=== PATIENT | female | born 1970 | race Caucasian/White ===

== ENCOUNTER → 2017-07-19 02:41 | Outpatient (CLI) | payer MEDICAID ==
[2010-10-28 12:47] VITALS: BMI 26.5
[2017-07-19 06:46] LABS: HELICOBACTER PYLORI IGG NEGATIVE (NEGATIVE)
== END ==
LOC: D.LABREF 02:41
PROVIDERS: Family Medicine
DX: R11.2 Nausea with vomiting, unspecified (principal)

== ENCOUNTER 2017-10-10 05:11 | Day surgery (SDC) | payer MEDICAID ==
[2017-10-07 10:28] LABS: HEMATOCRIT 36.5 % (36.0-48.0); HEMOGLOBIN 12.1 g/dL (12-16); MCH 30.1 pg (26.0-34.0); MCHC 33.2 g/dL (31.0-37.0); MCV 90.8 fL (80.0-100.0); MEAN PLATELET VOLUME 8.8 fL (7.4-10.4); RBC 4.02 10x6/uL (4.00-5.40); RDW 12.4 % (11.5-14.5); WBC 7.7 10x3/uL (4.8-10.8)
[~2017-10-10] VITALS: Ht 154.9 cm; Wt 56.2 kg
[2017-10-10 07:23] VITALS: BP 101/67; Ht 154.9 cm; Wt 56.2 kg
[2017-10-10 08:03] LABS: HCG URINE NEGATIVE (NEGATIVE)
--- NOTE | 2017-10-10 08:08 | NUR ---
PT GOT NAUSEATED AND PALE WHEN IV STARTED. STATED "I CANT FEEL MY HANDS OR LEGS. ABLE TO MOVE. KOKI GARZA, HERE TO [employer]. GAVE VERSED AND PT RELAXED. 02 SAT 100%, 110 INITIALLY. BP NOW 108.57, 02 100%, HR 58. PT RESTING EASILY.
[2017-10-10] MEDS ORDERED: HYDROCODON-ACE1 EAC7 PO (10:08)
--- NOTE | 2017-10-10 13:30 | NUR ---
UP TO BATHROOM, VOIDED LARGE AMOUNT. IV REMOVED INTACT. DISCHARGE INSTRUCTIONS AND RX GIVEN, VOICED UNDERSTANDING. STATES NAUSEA IS BETTER. TAKING SIPS OF LIQUIDS.
== END 2017-10-10 14:00 | disposition home or self-care (01) ==
LOC: D.OPS 05:11 → D.PAN 09:00 → D.OPS 09:00
PROVIDERS: Anesthesiology; Surgery
DX: K80.80 Other cholelithiasis without obstruction (principal); R10.11 Right upper quadrant pain; Z01.812 Encounter for preprocedural laboratory examination

== ENCOUNTER 2019-02-21 10:50 | Emergency (ER) | payer MEDICAID ==
[~2019-02-21] VITALS: Ht 154.9 cm; Wt 56.4 kg
[~2019-02-21 10:50] MED LIST: HYDROCODON-ACE1 EAC7 PO
[2019-02-21 10:56] VITALS: Ht 154.9 cm; Wt 56.4 kg
[2019-02-21] MEDS ORDERED: FERROUS SULFAT325 MG PO (10:58)
[2019-02-21] MEDS ORDERED: VITAMIN D31000 UNI2 PO (10:58)
[2019-02-21 11:48] LABS: ALBUMIN 3.9 g/dL (3.4-5.0); ALKALINE PHOSPHATASE 65 U/L (46-116); ALT (SGPT) 36 U/L (10-68); APTT 33.1 SECONDS (22.8-39.4); BILIRUBIN - TOTAL 0.42 mg/dL (0.2-1.3); CALC OSMOLALITY 282 mosm/kg (275-300); CALCIUM 8.9 mg/dL (8.5-10.1); CARBON DIOXIDE 29.1 mmol/L (21.0-32.0); CHLORIDE - SERUM 106 mmol/L (98-107); CREATININE - SERUM 0.7 mg/dL (0.6-1.3); GLUCOSE 96 mg/dL (74-106); INR 1.13 (0.85-1.17); POTASSIUM - SERUM 3.8 mmol/L (3.5-5.1); PROTEIN - SERUM 7.6 g/dL (6.4-8.2); SODIUM 142 mmol/L (136-145); UREA NITROGEN 12 mg/dL (7-18); eGFR NON AFRICAN AMERICAN > 90 mL/min (90-120)
[2019-02-21 12:00] LABS: CKMB 0.2 U/L (0.0-3.6); CREATINE KINASE 59 UL (21-215)
[2019-02-21 12:01] LABS: TROPONIN-I < 0.017 ng/mL (0.000-0.060)
[2019-02-21 12:04] LABS: BASOPHILS 0.6 % (0-2); HEMATOCRIT 35.4 % (36.0-48.0); HEMOGLOBIN 11.6 g/dL (12-16); IMMATURE GRANULOCYTES 0.2 % (0-5); LYMPHOCYTES 31.5 % (15-50); MCH 28.6 pg (26.0-34.0); MCHC 32.8 g/dL (31.0-37.0); MCV 87.2 fL (80.0-100.0); MEAN PLATELET VOLUME 8.7 fL (7.4-10.4); MONOCYTES 9.6 % (2-11); NEUTROPHILS 56.1 % (40-80); PLATELET COUNT 284 10x3/uL (130-400); RBC 4.06 10x6/uL (4.00-5.40); RDW 14.8 % (11.5-14.5); WBC 5.1 10x3/uL (4.8-10.8)
[2019-02-21] MEDS ORDERED: VOLTAREN75 MG PO (13:12)
[2019-02-21 13:42] VITALS: BP 119/75
== END 2019-02-21 13:40 | disposition home or self-care (01) ==
LOC: D.ER 10:50
PROVIDERS: Emergency Medicine
DX: R07.89 Other chest pain (principal)

== ENCOUNTER 2020-05-29 08:00 | Outpatient (CLI) | payer MEDICAID ==
[2019-02-21 10:56] VITALS: BMI 23.4
[~2020-05-29 08:00] MED LIST changes: +FERROUS SULFAT325 MG PO; +VITAMIN D31000 UNI2 PO; +VOLTAREN75 MG PO
== END 2020-05-29 23:59 | disposition home or self-care (01) ==
LOC: D.MAMMO 08:00
PROVIDERS: ATTEND Family Medicine
DX: N63.12 Unspecified lump in the right breast, upper inner quadrant (principal); N63.25 Unspecified lump in the left breast, overlapping quadrants

== ENCOUNTER 2020-06-06 08:00 | Outpatient (CLI) | payer MEDICAID ==
[2019-02-21 10:56] VITALS: BMI 23.4
== END 2020-06-06 08:01 | disposition home or self-care (01) ==
LOC: D.MAMMO 08:00
PROVIDERS: ATTEND Family Medicine
DX: R92.8 Other abnormal and inconclusive findings on diagnostic imaging of breast (principal)